=== PATIENT | male | born 1950 | race Caucasian/White ===

== ENCOUNTER 2018-10-03 11:33 | Inpatient (IN) | payer MEDICARE ==
[~2018-10-03] VITALS: Ht 172.7 cm; Wt 59.2 kg
[2018-10-03 12:56] VITALS: BP 115/74
[2018-10-03] MEDS ORDERED: FLUSH 10 ML SYR IVP PRN (13:15)
[2018-10-03] MEDS ORDERED: ACETAMINOPHEN 325 MG TAB PO PRN (13:15)
--- NOTE | 2018-10-03 13:55 | History & Physical ---
History of Present Illness Chief Complaint SOB, Cough History of Present Illness He is a a 67-year-old man, who presented to [facility] with complaints of cough and shortness of breath for 10 days. He reports he was exposed to his grandson who had influenza A and continued to get worse overtime. He denies N/V/D or chest pain. He has had fevers off and on. He was found to have multifocal pneumonia on chest x-ray. He was given Solu-Medrol 125mg IVP and nebulizer at urgent care. He was recommended for direct admission secondary to his oxygen usage requiring 8L at urgent care. History Problems: (1) BPH (benign prostatic hyperplasia) Status: Chronic Home Meds Reported Medications Tamsulosin Hcl (FLOMAX) 0.4 Mg Cap.er.24h, 0.4 MG PO DAILY, #30 06/08/13 Acetaminophen (TYLENOL) 325 Mg Tablet, 325 MG PO PRN 06/03/13 Multivitamin With Minerals (MULTIPLE VITAMIN) 1 Each Tablet, 1 EACH PO DAILY 06/03/13 Discontinued Reported Medications Oxycodone Hcl/Acetaminophen (PERCOCET 7.5-325 MG TABLET) 1 Each Tablet, 1-2 EACH PO Q4-6H PRN for PAIN, #60 06/08/13 Oxycodone Hcl (OXYCONTIN) 10 Mg Tab.er.12h, 10 MG PO Q12H PRN for PAIN, #10 06/08/13 Rivaroxaban (XARELTO 10 MG TAB (OR EQUIV)) 10 Mg Tablet, 10 MG PO DAILY 06/08/13 Cod Liver Oil (COD LIVER OIL) 1 Each Capsule, 1 EACH PO DAILY, CAPSULE 06/03/13 Allergies: Coded Allergies: Penicillins (Verified Allergy, Mild, ITCHING, 06/03/13) Patient History: FH: Alzheimers disease MOTHER FH: Crohn's disease BROTHER OR SISTER FH: cancer FATHER BROTHER OR SISTER FH: depression BROTHER OR SISTER Graves' disease MOTHER Hx Smoking: Yes Smoking Status: Former Smoker Caffeine Intake: Coffee, Tea Caffeine/Cups Per Day: 2 coffees/2 teas Alcohol Used: Beer Hx Substance Use Disorder: No Social Drug Use: Never Review of Systems All Systems Reviewed/Normal: Yes, Except as Noted Constitutional: Fever Respiratory: Shortness of Breath, Cough Exam Vital Signs Vital Signs Date Time Temp Pulse Resp B/P (MAP) Pulse Ox O2 Delivery O2 Flow Rate FiO2 10/03/18 12:56 99.0 82 22 115/74 (88) 91 Nasal Cannula 5.0 General Appearance: Alert, Awake, No Acute Distress, Afebrile Neuro: No Gross deficits Cardiovascular: Regular Rate and Rhythm Respiratory: No Respiratory Distress, Other (diffuse rhonchi bilaterally) GI: Abd Soft and Non-Tender Extremities: Warm, Perfused; No Edema Psych: Alert & Oriented X3, Appropriate Mood & Affect Medical Decision Making Data Points Item Value Date Time Random Glucose 120 mg/dl H 10/03/18 0953 Total Bilirubin 1.6 mg/dl H 10/03/18 0953 Creatinine 0.70 mg/dl 10/03/18 0953 Carbon Dioxide Level 28 mmol/L 10/03/18 0953 Troponin I < 0.012 ng/ml 10/03/18 0953 White Blood Count 14.9 k/uL H 10/03/18 0953 D-Dimer Quantitative (PE/DVT) 1.44 ug/ml H 10/03/18 0953 EKG / Imaging EKG Interpretation EKG performed at Urgent Care shows, normal sinus rhythm. Imaging Chest X-ray performed at Urgent Care- Paper Copy in Chart, shows bilateral heterogeneous interstitial opacities, greatest within the left mid/lower lung, concerning for multifocal pneumonia. Assessment and Plan Problems: (1) CAP (community acquired pneumonia) Status: Acute Assessment & Plan: CXR shows multifocal pneumonia bilaterally. He will get blood cultures, sputum culture, flutter therapy and nebulizers as needed. He will be placed on IV Levaquin. He did receive Solu-Medrol at urgent care already. Will wait to order steroids at this time. Will order flu test. (2) Hypoxia Status: Acute Assessment & Plan: He is requiring 5L of oxygen. Continue to monitor. (3) BPH (benign prostatic hyperplasia) Status: Chronic Assessment & Plan: He is on chronic treatment with Flomax. Continue. Venous Thromboembolism Antithrombotics Is Pt On Any Antithrombotics?: Yes JAYASHREE LEYVAP Oct 03, 2018 13:55
[2018-10-03] MEDS: NS(*) 0.9% 1000 ML BAG 1,000 ML IV PRN (14:00)
[2018-10-03] MEDS: LEVOFLOXACIN/D5W 750 MG/150 ML 150 ML IVPB SCH (14:00)
[2018-10-03] MEDS ORDERED: NS(*) 0.9% 50 ML BAG 50 ML ONE (14:28)
--- NOTE | 2018-10-03 16:17 | RADIOLOGY IMAGING REPORT ---
FACILITY: [facility] PATIENT NAME: Jatin Ceja : 1950 MR: [id number] V: [id number] EXAM DATE: ORDERING PHYSICIAN: JAYASHREE LEYVA TECHNOLOGIST: Location: [facility] Patient: Jatin Ceja : 1950 Visit/Account:[id number] Date of Sevice: 10/03/[address] pulmonary angiogram with contrast. HISTORY: Elevated d-dimer. COMPARISON: Previous not currently available. 1 mm thick, 2 mm thick, and [address] images were obtained of the chest using 75 mL intrave nous [id number]. 3-D SLAB MIPS reconstruction images were obtained of the pulmonary arteries. One o f the following dose optimization techniques was utilized in the performance of this exam: Automated exposure control; adjustment of the mA and/or kV according to the patient's size; or use of an iterat cherise reconstruction technique. Specific details can be referenced in the facility's radiology CT exa m operational policy. FINDINGS: Patchy airspace, interstitial, and peribronchial infiltrates are present in both lungs, most prominen t in the lung bases, left greater than right. Moderate bronchial thickening is present bilaterally. Several lymph nodes measuring up to 1.5 cm in diameter are scattered in the mediastinum. Several moore bcarinal lymph nodes are calcified. The thoracic aorta is mildly ectatic. The pulmonary arteries ar e unremarkable. No filling defects are identified to suggest acute pulmonary embolism. The heart si ze is normal. No pleural fluid area did Degenerative changes are present in the spine. A six mm low-density lesion probably representing a c yst is present in the anterior aspect of the right liver lobe. IMPRESSION: Bilateral lung infiltrates suspicious for pneumonia. Other etiologies including lymphangitic spread of neoplasm are not excluded. Negative for acute pulmonary embolism. Old granulomatous disease. The patient's provider has been paged by the Imaging Pharmacy Technician Infusion at 4:15 PM on 10/03/1989. Report Dictated By: Bonilla Damico MD at 10/03/2018 4:01 PM Report E-Signed By: Bonilla Damico MD at 10/03/2018 4:12 PM WSN:[email or web address]
[2018-10-03 20:12] VITALS: BP 98/67
[2018-10-03 20:59] VITALS: BP 15/73
[2018-10-04] MEDS: ALBUTEROL 2.5 MG/3 ML NEB NEB PRN ×2 (02:28→07:55)
[2018-10-04 02:40] VITALS: BP 97/65
[2018-10-04] MEDS ORDERED: methylPREDNIS SUCC 125 MG/2ML IVP ONE (03:35)
--- NOTE | 2018-10-04 03:59 | RADIOLOGY IMAGING REPORT ---
FACILITY: [facility] PATIENT NAME: Jatin Cjea : 1950 MR: [id number] V: [id number] EXAM DATE: ORDERING PHYSICIAN: LORI PHOENIX TECHNOLOGIST: Location: [facility] [place] Patient: Jatin Ceja : 1950 Visit/Account:[id number] Date of Sevice: 10/04/2018 AP CHEST 10/04/2018 3:15 AM. INDICATION: increased O2 needs, cough COMPARISON: CTA chest and chest radiographs yesterday. FINDINGS: Lungs are well-expanded. Patchy opacification of the left lower lung may be slightly increased. Hyp erexpansion and diffuse interstitial changes similar to prior. No pleural effusion or pneumothorax. H eart size is normal. IMPRESSION: Question slightly increased left lower lobe opacification. Report Dictated By: Ishan Vásquez MD at 10/04/2018 3:53 AM Report E-Signed By: Ishan Vásquez MD at 10/04/2018 3:55 AM WSN:[id number]
--- NOTE | 2018-10-04 04:04 | Miscellaneous Provider Note ---
Miscellaneous Provider Note Note Called to see patient with increasing O2 requirements. Patient states he is feeling better after nebulizer treatment. On exam he is lying in bed resting comfortably. Respiratory rate 20. His O2 sat is 90% on 10 liters per mask. HR- 68. BP low normal with adequate MAP. Lung exam with dimished BS in bases. Bronchial breath sounds heard L midaxillary line. Will monitor closely. Solumedrol 125mg ordered. Tamiflu started. If his O2 requirements increase, will try BiPAP or VapoTherm. Inital lactate negative and the pateint is not tachycardic but continue to monitor for signs of sepsis and or worsening respiratory failure. LORI PHOENIX MD Oct 04, 2018 04:04
[2018-10-04] MEDS: OSELTAMIVIR PHOS 75 MG CAP PO SCH ×3 (04:17→21:26)
[2018-10-04] MEDS: NS(*) 0.9% 1000 ML BAG 1,000 ML IV PRN (05:37)
[2018-10-04 06:03] LABS: PLATELET COUNT, AUTOMATED 414 K/uL (150-450)
[2018-10-04 07:06] VITALS: BP 97/69
[2018-10-04] MEDS: ENOXAPARIN 40 MG/0.4ML SYR SC SCH (09:55)
[2018-10-04] MEDS: TAMSULOSIN HCL 0.4 MG CAP PO SCH (09:55)
[2018-10-04] MEDS ORDERED: methylPREDNIS SUCC 125 MG/2ML IVP SCH (10:00)
[2018-10-04] MEDS: ALBUTEROL/IPRATROPIUM 3 ML NEB NEB SCH ×2 (11:30→17:12)
[2018-10-04 12:07] VITALS: Ht 172.7 cm; Wt 59.2 kg
--- NOTE | 2018-10-04 12:14 | Medical Nutrition Therapy ---
Nutrition Anthropometrics Height (Inches): 68.00 Height (Calculated Centimeters: [phone] Weight (Pounds): 130 Weight (Calculated Kilograms): 59.194 Haroon Nutrition Score: Adequate Haroon Nutrition Risk Score: 20 Dietary Referral Nutrition Risk Factors: Unplanned Loss >10lbs Nutrition Risk Comment: Physical Findings Physical Appearance: WNR Skin Appearance Skin Appearance: Edema Edema Location Modifier: Edema Location: Type of Edema: Degree of Edema: Gastrointestinal Symptoms GI Symtoms: Tube Present: Bowel Sounds: Recent Bowel Pattern: Stool Characteristics: Nutritional Diagnosis Nutritional Risk Acuity 2: Unintended Wt Loss >5%/mo Nutritional Risk Acuity 4: Good Appetite, %IBW 90-100% Nutritional Acuity: 2-Moderate Nutrition Diagnosis: Involuntary Wt. Loss Nutrition Etiology: Physiological Causes Nutrition Problem/Etiology/Sym: AEB pt reported wt loss with current wt 130#, wt 155# last admite 06/05/13 Energy Requirement: 1800 (30kcal/kg) Protein Requirement: 60 (1gm/kg) Fluid Requirement: 1800 (30ml/kg) Diet Type: Diet as Tolerated ARMANI/REG Nutrition Intervention: Cont diet as ordered, Encourage intake Nutrition Monitoring & Eval Nutrition Goals: Eat 75-100% Meal RD Patient Assessment Time: [address] Assessment Type: RD Assessment Patient Nutrition Acuity: 1-High Follow Up Date: Oct 09, 2018 Nutritional Comment: 3/ Pt admitted with pneumonia. Pt on regular diet and eating 75-100%. Pt reported 10# unplanned wt loss. Current wt is 93% IBWR and BMI is in lower range of desired wt. alb 2.8. Will cont to monitor. CECILIO FORD Oct 04, 2018 12:14
[2018-10-04 12:42] VITALS: BP 100/66
--- NOTE | 2018-10-04 13:19 | Hospitalist Progress Note ---
Subjective Progress Notes Subjective He reports feeling improved. Less dyspnea. Physical Exam Vital Signs Date Time Temp Pulse Resp B/P (MAP) Pulse Ox O2 Delivery O2 Flow Rate FiO2 10/04/18 12:42 82 20 100/66 (77) 90 Oxy Mask 8.0 10/04/18 07:06 97.7 Intake and Output 10/04/18 07:00 Intake Total 1324 ml Balance 1324 ml Intake Oral 240 ml IV Total 1084 ml # Voids 2 General Appearance: Alert, Awake Cardiovascular: Regular Rate and Rhythm Respiratory: Other (diminished breath sounds throughout with few rales at left base and expiratory wheezes) Chest: No Tenderness GI: Soft and Non-Tender Extremities: Warm, Perfused Psych: Alert & Oriented X3 Result Diagram: 10/04/18 0509 10/04/18 0509 Assessment and Plan Problems: (1) CAP (community acquired pneumonia) Status: Acute Assessment & Plan: Some clinical improvements this AM. CXR shows multifocal pneumonia bilaterally. Blood cultures, sputum culture are pending. Continue flutter therapy, nebulizers, supplemental oxygen, IV Levaquin, Solu-Medrol. Influenza testing is negative. (2) Hypoxia Status: Acute Assessment & Plan: His oxygen requirement has been variable - currently on 8L via OxyMask. Continue to monitor. (3) BPH (benign prostatic hyperplasia) Status: Chronic Assessment & Plan: He is on chronic treatment with Flomax. Exam Sepsis Risk: No Definite Risk LOKI PHOENIX MD Oct 04, 2018 13:19
[2018-10-04] MEDS: LEVOFLOXACIN/D5W 750 MG/150 ML 150 ML IVPB SCH (14:55)
[2018-10-04 16:03] VITALS: BP 99/64
[2018-10-04] MEDS: methylPREDNIS SUCC 125 MG/2ML IVP SCH ×2 (17:14→21:27)
[2018-10-04 18:55] VITALS: BP 101/65
[2018-10-04] MEDS: MELATONIN 3 MG TAB PO PRN (22:50)
[2018-10-05] MEDS: methylPREDNIS SUCC 125 MG/2ML IVP SCH (04:20)
[2018-10-05 04:21] VITALS: BP 95/67
[2018-10-05] MEDS: ALBUTEROL/IPRATROPIUM 3 ML NEB NEB SCH (05:52)
[2018-10-05 06:12] LABS: PLATELET COUNT, AUTOMATED 456 K/uL (150-450)
[2018-10-05 06:55] VITALS: BP 94/59
[2018-10-05] MEDS ORDERED: LEVALBUTEROL 1.25 MG/3 ML NEB NEB PRN (08:45)
[2018-10-05] MEDS ORDERED: INFLUENZA VIRUS VAC 0.5ML SYR IM ONLY ONE (09:00)
[2018-10-05] MEDS: ENOXAPARIN 40 MG/0.4ML SYR SC SCH (10:13)
[2018-10-05] MEDS: predniSONE 20 MG TAB PO SCH (10:13)
[2018-10-05] MEDS: TAMSULOSIN HCL 0.4 MG CAP PO SCH (10:13)
--- NOTE | 2018-10-05 10:15 | Hospitalist Progress Note ---
Subjective Progress Notes Subjective This patient was admitted for pneumonia. He had no acute events overnight. Patient Complains of: Cardiovascular: No: Chest Pain Respiratory: Shortness of Breath Physical Exam Vital Signs Date Time Temp Pulse Resp B/P (MAP) Pulse Ox O2 Delivery O2 Flow Rate FiO2 10/05/18 06:55 97.7 80 20 94/59 (71) 91 Oxy Mask 10.0 Intake and Output 10/05/18 07:00 Intake Total 1190 ml Balance 1190 ml Intake Oral 1040 ml IV Total 150 ml # Voids 2 Respiratory: Other (Bilateral wheezes.) Result Diagram: 10/05/1851310/05/18513 Assessment and Plan Problems: (1) CAP (community acquired pneumonia) Status: Acute Assessment & Plan: A chest x-ray and CT scan showed bilateral infiltrates, but could not exclude malignancy. He was placed on empiric treatment with levoflo xacin. Blood cultures have been negative. He was converted to oral antibiotics today. He will require a follow up CT scan to show resolution. (2) Hypoxia Status: Acute Assessment & Plan: He has required high amounts of oxygen. (3) COPD exacerbation Assessment & Plan: He has not been formally diagnosed, but does have a long smoking history. He was placed on nebulizers and IV steroids. We converted him to oral prednisone today. He was also converted to Xopenex secondary to tremul ousness. (4) BPH (benign prostatic hyperplasia) Status: Chronic Assessment & Plan: He is on chronic treatment with Flomax. Exam Sepsis Risk: No Definite Risk JEANNIE SPAULDING DO Oct 05, 2018 10:15
[2018-10-05] MEDS: LEVALBUTEROL 1.25 MG/3 ML NEB NEB SCH ×2 (11:02→17:09)
[2018-10-05 13:55] VITALS: BP 102/71
[2018-10-05] MEDS: LEVOFLOXACIN 750 MG TAB PO SCH (13:57)
--- NOTE | 2018-10-05 15:19 | Antimicrobial Stewardship ---
Antimicrobial Time Out Antimicrobial Stewardship MD Service: Hospitalist Indications: CAP Antimicrobial Used LEVAQUIN 750 IV AND TAMIFLU PO, SWITCHED TO LEVAQUIN 750 PO 10/05 Start Date: Oct 03, 2018 Culture Results: No (NO GROWTH) Eligible for PO Conversion Eligable for PO Conversion: Yes (CONVERTED TO PO) Reviewed with Provider Reviewed w/ Provider on Rounds: No Comments Comments Patient treated for possible bilateral pneumonia with coverage for flu (negative flu test on admission). Patient has long smoking history and will need followup imaging to determine resolution. ANA ASCENCIO Oct 05, 2018 15:19
[2018-10-05 19:27] VITALS: BP 106/69
[2018-10-05] MEDS: MELATONIN 3 MG TAB PO PRN (19:58)
[2018-10-06 03:24] VITALS: BP 102/65
[2018-10-06] MEDS: LEVALBUTEROL 1.25 MG/3 ML NEB NEB SCH ×3 (05:24→16:51)
[2018-10-06 07:24] VITALS: BP 91/62
[2018-10-06] MEDS: TAMSULOSIN HCL 0.4 MG CAP PO SCH (09:21)
[2018-10-06] MEDS: guaiFENesin 600 MG TABCR PO SCH ×2 (09:21→21:04)
[2018-10-06] MEDS: ENOXAPARIN 40 MG/0.4ML SYR SC SCH (09:22)
[2018-10-06] MEDS: predniSONE 20 MG TAB PO SCH (09:22)
--- NOTE | 2018-10-06 11:37 | Hospitalist Progress Note ---
Subjective Progress Notes Subjective He was admitted with pneumonia. He reports improvement in symptoms. However, he is still requiring 10L of oxygen. Patient Complains of: Cardiovascular: No: Chest Pain Respiratory: No: Shortness of Breath Physical Exam Vital Signs Date Time Temp Pulse Resp B/P (MAP) Pulse Ox O2 Delivery O2 Flow Rate FiO2 10/06/18 10:56 79 18 10/06/18 10:50 93 Oxy Mask 9.0 10/06/18 07:24 98.0 91/62 (72) Intake and Output 10/06/18 00:59 Intake Total 1410 ml Balance 1410 ml Intake Oral 1410 ml General Appearance: Alert, Awake, No Acute Distress, Afebrile Neuro: No Gross deficits Cardiovascular: Regular Rate and Rhythm Respiratory: No Respiratory Distress, Other (diminished throughout bilateral lung ennis) Extremities: Warm, Perfused; No Edema Psych: Alert & Oriented X3, Appropriate Mood & Affect Result Diagram: 10/05/1851310/05/18513 Assessment and Plan Problems: (1) CAP (community acquired pneumonia) Status: Acute Assessment & Plan: A chest x-ray and CT scan showed bilateral infiltrates, but could not exclude malignancy. He was placed on empiric treatment with levofloxacin. Blood cultures have been negative. He was converted to oral antibiotics today. He will require a follow up CT scan to show resolution. (2) Hypoxia Status: Acute Assessment & Plan: He has required high amounts of oxygen. We will get ABG to assess if oxygen needs are accurate. (3) COPD exacerbation Assessment & Plan: He has not been formally diagnosed, but does have a long smoking history. He was placed on nebulizers and IV steroids. We converted him to oral prednisone today. He was also converted to Xopenex secondary to tremulousness. (4) BPH (benign prostatic hyperplasia) Status: Chronic Assessment & Plan: He is on chronic treatment with Flomax. Exam Sepsis Risk: No Definite Risk JAYASHREE LEYVAP Oct 06, 2018 11:37
[2018-10-06 12:32] VITALS: BP 107/65
[2018-10-06] MEDS: LEVOFLOXACIN 750 MG TAB PO SCH (14:01)
[2018-10-06 18:36] VITALS: BP 105/65
[2018-10-06] MEDS: MELATONIN 3 MG TAB PO PRN (21:04)
[2018-10-07 04:43] VITALS: BP 114/79
[2018-10-07] MEDS: LEVALBUTEROL 1.25 MG/3 ML NEB NEB SCH ×3 (05:16→16:49)
[2018-10-07 07:40] VITALS: BP 110/81
[2018-10-07] MEDS: predniSONE 20 MG TAB PO SCH (08:23)
[2018-10-07] MEDS: guaiFENesin 600 MG TABCR PO SCH ×2 (08:23→20:42)
[2018-10-07] MEDS: ENOXAPARIN 40 MG/0.4ML SYR SC SCH (08:23)
[2018-10-07] MEDS: TAMSULOSIN HCL 0.4 MG CAP PO SCH (08:23)
--- NOTE | 2018-10-07 10:07 | Hospitalist Progress Note ---
Subjective Progress Notes Subjective He was admitted with pneumonia. He is requiring 7L of oxygen. He reports much improvement in symptoms. Patient Complains of: Cardiovascular: No: Chest Pain Respiratory: No: Shortness of Breath Physical Exam Vital Signs Date Time Temp Pulse Resp B/P (MAP) Pulse Ox O2 Delivery O2 Flow Rate FiO2 10/07/18 09:24 24 10/07/18 08:26 89 Nasal Cannula 8.0 10/07/18 07:40 97.8 71 110/81 (91) Intake and Output 10/07/18 01:00 Intake Total 1310 ml Balance 1310 ml Intake Oral 1310 ml # Voids 3 General Appearance: Alert, Awake, No Acute Distress, Afebrile Neuro: No Gross deficits Cardiovascular: Regular Rate and Rhythm Respiratory: No Respiratory Distress, Clear to Auscultation GI: Soft and Non-Tender Psych: Alert & Oriented X3, Appropriate Mood & Affect Result Diagram: 10/05/1814 10/05/18513 Assessment and Plan Problems: (1) CAP (community acquired pneumonia) Status: Acute Assessment & Plan: A chest x-ray and CT scan showed bilateral infiltrates, but could not exclude malignancy. He was placed on empiric treatment with levoflo xacin. Blood cultures have been negative. He was converted to oral antibiotics. He will require a follow up CT scan to show resolution. (2) Hypoxia Status: Acute Assessment & Plan: He has required high amounts of oxygen. ABG assessment 10/06 shows pO2 of 60, which is consistent with high oxygen needs. He is down to 7L from 10L yesterday. (3) COPD exacerbation Assessment & Plan: He has not been formally diagnosed, but does have a long smoking history. He was placed on nebulizers and IV steroids. We converted him to oral prednisone. He was also converted to Xopenex secondary to t remulousness. (4) BPH (benign prostatic hyperplasia) Status: Chronic Assessment & Plan: He is on chronic treatment with Flomax. Exam Sepsis Risk: No Definite Risk JAYASHREE LEYVA Oct 07, 2018 10:07
[2018-10-07 11:27] VITALS: BP 100/73
[2018-10-07] MEDS: LEVOFLOXACIN 750 MG TAB PO SCH (14:11)
[2018-10-07 16:46] VITALS: BP 102/70
[2018-10-07 20:11] VITALS: BP 103/64
[2018-10-07] MEDS: MELATONIN 3 MG TAB PO PRN (20:42)
[2018-10-08 04:43] VITALS: BP 100/76
[2018-10-08] MEDS: LEVALBUTEROL 1.25 MG/3 ML NEB NEB SCH (05:00)
[2018-10-08 06:19] LABS: PLATELET COUNT, AUTOMATED 502 K/uL (150-450)
[2018-10-08 07:40] VITALS: BP 91/67
[2018-10-08] MEDS ORDERED: ALBUTEROL 8 GM INHALER INH PRN (08:20)
[2018-10-08] MEDS ORDERED: ALB18R INH (08:24)
[2018-10-08] MEDS ORDERED: PRED-1 PO (08:29)
--- NOTE | 2018-10-08 08:32 | Hospitalist Depart ---
Discharge Summary Reason for Hosp/Final Diag: (1) CAP (community acquired pneumonia) Status: Acute Hospital Course & Plan: A chest x-ray and CT scan showed bilateral infiltrates, but could not exclude malignancy. He was placed on empiric treatment with levofloxacin. Blood cultures have been negative. He was converted to oral antibiotics and completed Levaquin therapy during admission. He will require a follow up CT scan to show resolution of pneumonia. (2) Hypoxia Status: Acute Hospital Course & Plan: He has required high amounts of oxygen. ABG assessment 10/06 shows pO2 of 60, which is consistent with high oxygen needs. He is down to 5L from 10L upon admission. (3) COPD exacerbation Hospital Course & Plan: He has not been formally diagnosed, but does have a long smoking history. He was placed on nebulizers and IV steroids. We converted him to oral prednisone and will continue long taper. He was also converted to Xopenex secondary to tremulousness. He will be sent home with albuterol inhaler for wheezing. (4) BPH (benign prostatic hyperplasia) Status: Chronic Hospital Course & Plan: He is on chronic treatment with Flomax. Departure Latest Vital Signs Vital Signs Weight (Pounds): 130 Weight (Ounces): 8.0 Result Diagram: 10/08/1854510/08/18545 Condition: Improved Discharge: Home, Self Care Discharge Instructions Home Meds Active Scripts Prednisone 10 Mg Tab (PREDNISONE 10 MG TAB) 10 Mg Tablet, 10 MG PO DIRECTED, #20 TAB Take 3 tabs for 3 days, then 2 tabs for 3 days, then 1 tab for 3 days, then 0.5 tab for 3 days, then stop Prov:JAYASHREE LEYVA 10/08/18 Albuterol Sulfate (VENTOLIN HFA) 18 Gm Inh, 2 PUFF INH Q4HR PRN for SHORTNESS OF BREATH, #1 INH Prov:JAYASHREE LEYVA 10/08/18 Reported Medications Tamsulosin Hcl (FLOMAX) 0.4 Mg Cap.er.24h, 0.4 MG PO DAILY, #30 06/08/13 Acetaminophen (TYLENOL) 325 Mg Tablet, 325 MG PO PRN 06/03/13 Multivitamin With Minerals (MULTIPLE VITAMIN) 1 Each Tablet, 1 EACH PO DAILY 06/03/13 Discontinued Reported Medications Oxycodone Hcl/Acetaminophen (PERCOCET 7.5-325 MG TABLET) 1 Each Tablet, 1-2 EACH PO Q4-6H PRN for PAIN, #60 06/08/13 Oxycodone Hcl (OXYCONTIN) 10 Mg Tab.er.12h, 10 MG PO Q12H PRN for PAIN, #10 06/08/13 Rivaroxaban (XARELTO 10 MG TAB (OR EQUIV)) 10 Mg Tablet, 10 MG PO DAILY 06/08/13 Cod Liver Oil (COD LIVER OIL) 1 Each Capsule, 1 EACH PO DAILY, CAPSULE 06/03/13 Diet: Regular Activity: As Tolerated Special Instructions: Follow up next week with Dr. Jackman. Use albuterol inhaler every 4 hours as needed. Wear oxygen at all times. Copies to: CHANDNI JACKMAN DO ; Venous Thromboembolism Antithrombotics Is Pt On Any Antithrombotics?: Yes JAYASHREE LEYVAP Oct 08, 2018 08:32
[2018-10-08] MEDS: guaiFENesin 600 MG TABCR PO SCH (08:37)
[2018-10-08] MEDS: ENOXAPARIN 40 MG/0.4ML SYR SC SCH (08:37)
[2018-10-08] MEDS: predniSONE 20 MG TAB PO SCH (08:38)
[2018-10-08] MEDS: TAMSULOSIN HCL 0.4 MG CAP PO SCH (08:38)
== END 2018-10-08 09:50 | disposition home or self-care (01) | DRG 190 ==
LOC: MED 12:18
PROVIDERS: ADMIT Internal Medicine; ATTEND Internal Medicine
DX: J44.0 Chronic obstructive pulmonary disease with (acute) lower respiratory infection (principal); J18.9 Pneumonia, unspecified organism; J44.1 Chronic obstructive pulmonary disease with (acute) exacerbation; R09.02 Hypoxemia; N40.0 Benign prostatic hyperplasia without lower urinary tract symptoms; Z88.0 Allergy status to penicillin; Z87.891 Personal history of nicotine dependence
CPT/HCPCS: 36415; 36600; 71045; 71275; 82040; 82247; 82310; 82374; 82435; 82565; 82803; 82947; 83605; 84075; 84132; 84155; 84295; 84450; 84460; 84520; 85025; 87040; 87070; 87502; 94640; 94667; 94668; J1650; J1956; J2930; J7030; J7050; J7512; J7613; Q9967

== ENCOUNTER → 2018-10-03 | Outpatient (REF) | payer MEDICARE ==
[~2018-10-03] MED LIST: ACET-1966 PO; COD1CAPS40 PO; IBUP-1618 PO; LOR5 PO; MULT-1335 PO; NAPR-1043 PO; OXYC-823 PO; OXYC-869 PO; RIV10 PO; TAMS0.4C25 PO
[2018-10-03 10:28] LABS: PLATELET COUNT, AUTOMATED 456 K/uL (150-450)
== END ==
PROVIDERS: ATTEND Nurse Practitioner Family
DX: R09.02 Hypoxemia (principal); R05 Cough
CPT/HCPCS: 82040; 82247; 82310; 82374; 82435; 82565; 82947; 84075; 84132; 84155; 84295; 84450; 84460; 84484; 84520; 85025; 85379

== ENCOUNTER → 2018-10-03 | Outpatient (CLI) | payer MEDICARE | LOC: CT 12:23 | PROVIDERS: ATTEND Nurse Practitioner Family | DX: R06.02 Shortness of breath (principal) ==